=== PATIENT | male | born 1980 | race Two or more races ===

== ENCOUNTER 2018-08-25 02:11 | Emergency (ER) | payer MEDICAID ==
[~2018-08-25] VITALS: Ht 170.2 cm; Wt 117.0 kg
--- NOTE | 2018-08-25 02:50 | NUR ---
Pt came in complaining of cough with congestion. He states he has been coughing x 5 months and tried all possible remedies but without relief. Pt is A, O/4, walks independently, on RA, lungs clear to auscultation . Pt admits to smoking cigarettes and states he recently quit smoking marijuana. Awaiting to be seen by Dr. Feng.
[2018-08-25] MEDS ORDERED: CLONIDINE HCL 0.1 MG TABLET ONE (03:24)
[2018-08-25] MEDS ORDERED: CLONIDINE HCL 0.1 MG TABLET PO ONE (03:30)
[2018-08-25 03:34] LABS: EOSINOPHILS % (AUTO) 4.4 % (0.0-6.0); HEMATOCRIT 41 % (39-51); HEMOGLOBIN 13.6 g/dL (13.5-17.5); LYMPHOCYTES # (AUTO) 3.1 /CMM (0.8-4.8); LYMPHOCYTES % (AUTO) 32.1 % (20.0-44.0); MEAN CORPUSCULAR HGB CONC 33 g/dl (31.0-36.0); MEAN CORPUSCULAR VOLUME 84 fL (80-96); MONOCYTES # (AUTO) 0.6 /CMM (0.1-1.30); MONOCYTES % (AUTO) 6.7 % (2.0-12.0); NEUTROPHILS # (AUTO) 5.4 /CMM (1.8-8.9); NEUTROPHILS % (AUTO) 55.8 % (43.0-81.0); PLATELET COUNT (AUTO) 227 /CMM (150-450); RED BLOOD CELL COUNT(AUTO) 4.89 MIL/uL (4.5-6.0); WHITE BLOOD COUNT (AUTO) 9.6 K/uL (4.3-11.0)
[2018-08-25 03:35] LABS: BASOPHILS # (AUTO) 0.1 /CMM (0.0-0.2)
[2018-08-25 03:39] LABS: CALCIUM, SERUM 8.6 mg/dL (8.5-10.1); CREATININE 1.2 mg/dL (0.6-1.3); POTASSIUM 3.9 mmol/L (3.5-5.1)
[2018-08-25 03:45] LABS: ALBUMIN 3.5 g/dL (3.4-5.0); BILIRUBIN,TOTAL 0.3 mg/dL (0.2-1.0); TOTAL PROTEIN, SERUM 7.2 g/dL (6.4-8.2)
--- NOTE | 2018-08-25 03:45 | NUR ---
Urine sample collected and sent to lab
[2018-08-25 04:12] LABS: APPEARANCE,URINE CLEAR (CLEAR); BILIRUBIN,URINE NEGATIVE (NEGATIVE); BLOOD, URINE NEGATIVE Ery/uL (NEGATIVE); COLOR,URINE YELLOW (YELLOW); KETONES,URINE TRACE (NEGATIVE); LEUKOCYTE ESTERASE ,URINE NEGATIVE (NEGATIVE); NITRITE, URINE NEGATIVE (NEGATIVE); PH,URINE 5.5 (5.0-8.0); PROTEIN,URINE 1+ mg/dl (NEGATIVE); UGLUCOSE NEGATIVE (NEGATIVE); UROBILINOGEN,URINE 0.2 EU/dL (0.2)
[2018-08-25 04:15] LABS: BACTERIA,URINE Few /HPF (None Seen); RBC,URINE 0-2 /HPF (0-2); SQUAMOUS EPITHELIAL CELL,UR Rare /HPF (None Seen); WBC,URINE 0-2 /HPF (0-3)
[2018-08-25] MEDS ORDERED: FUROSEMIDE 20 MG/2 ML VIAL IV ONE (04:30)
[2018-08-25] MEDS ORDERED: LABETALOL 20 MG/4 ML VIAL IV ONE (04:30)
[2018-08-25] MEDS ORDERED: FUROSEMIDE 20 MG/2 ML VIAL ONE (04:39)
[2018-08-25] MEDS ORDERED: LABETALOL 20 MG/4 ML VIAL ONE (04:39)
[2018-08-25 04:45] LABS: B-TYPE NATRIURETIC PEPTIDE 818 PG/ML (0-125)
--- NOTE | 2018-08-25 04:49 | NUR ---
Pre Labetalol VS : BP = 147/113, HR = 116, RR= 14
--- NOTE | 2018-08-25 04:52 | NUR ---
Intra labetalol BP = 148/98, HR = 97
--- NOTE | 2018-08-25 04:54 | NUR ---
Post Labetalol BP = 154/127, HR = 95
--- NOTE | 2018-08-25 05:10 | NUR ---
Pt resting comfortably, BP and HR remain elevated, will continue to monitor
--- NOTE | 2018-08-25 05:40 | NUR ---
Pt's BP is well controlled now at 149/81 mmHg, HR = 96.
--- NOTE | 2018-08-25 05:53 | NUR ---
Patient discharged to home in stable condition. Written and verbal after care instructions and prescription given. Patient verbalizes understanding of instruction.IV removed. Catheter intact and site benign. Pressure and 4x4 applied to site. No bleeding noted. Pt ambulatory with a steady gait
[2018-08-25 05:55] VITALS: BP 149/81
== END 2018-08-25 05:57 | disposition home or self-care (01) ==
LOC: ER 02:15
DX: I11.9 Hypertensive heart disease without heart failure (principal); I43 Cardiomyopathy in diseases classified elsewhere; F10.10 Alcohol abuse, uncomplicated; F17.200 Nicotine dependence, unspecified, uncomplicated; R00.0 Tachycardia, unspecified; Y90.9 Presence of alcohol in blood, level not specified; Z71.6 Tobacco abuse counseling
CPT/HCPCS: 36415; 71045; 80053; 80305; 81001; 83880; 84484; 85025; 93005; 96374; 96375; 99284; 99406; A4606; J1940; J3490; Z7610; 81000-TC

== ENCOUNTER 2019-01-11 22:03 | Inpatient (IN) | payer MEDICAID ==
[~2019-01-11] VITALS: Ht 170.2 cm; Wt 124.3 kg
[2019-01-11] MEDS ORDERED: IPRATROPIUM NEB FS 0.5 MG/2.5 ML AMPUL.NEB NEB ONE (22:30)
[2019-01-11] MEDS ORDERED: predniSONE 20 MG TABLET PO ONE (22:30)
[2019-01-11] MEDS ORDERED: NITROGLYCERIN PACKET 1 GM PACKET TD ONE ×2 (22:30→23:30)
[2019-01-11] MEDS ORDERED: ALBUTEROL FS 2.5 MG/3 ML VIAL.NEB NEB ONE (22:30)
[2019-01-11] MEDS ORDERED: ASPIRIN 81 MG TAB.CHEW PO ONE (22:30)
[2019-01-11] MEDS ORDERED: ALBUTEROL FS 2.5 MG/3 ML VIAL.NEB ONE (22:31)
[2019-01-11] MEDS ORDERED: IPRATROPIUM NEB FS 0.5 MG/2.5 ML AMPUL.NEB ONE (22:31)
[2019-01-11] MEDS ORDERED: ASPIRIN 81 MG TAB.CHEW ONE (22:34)
[2019-01-11] MEDS ORDERED: NITROGLYCERIN PACKET 1 GM PACKET ONE (22:34)
[2019-01-11] MEDS ORDERED: predniSONE 20 MG TABLET ONE (22:34)
--- NOTE | 2019-01-11 22:34 | NUR ---
PT BIBS. C/O "IM HAVING ANXIETY AND SHORTNESS OF BREATH, I ALSO THINK IM HAVING SYNCOPAL EPISODES" PT AOX4. AMBULATORY. VSS. PLACED ON NASAL CANULA ON 2L O2. MD AWARE
[2019-01-11 22:47] LABS: BASOPHILS # (AUTO) 0.1 /CMM (0.0-0.2); BASOPHILS % (AUTO) 0.9 % (0.0-2.0); HEMATOCRIT 39 % (39-51); HEMOGLOBIN 12.7 g/dL (13.5-17.5); LYMPHOCYTES # (AUTO) 2.3 /CMM (0.8-4.8); LYMPHOCYTES % (AUTO) 28.9 % (20.0-44.0); MEAN CORPUSCULAR HGB CONC 33 g/dl (31.0-36.0); MEAN CORPUSCULAR VOLUME 83 fL (80-96); MONOCYTES # (AUTO) 0.5 /CMM (0.1-1.30); MONOCYTES % (AUTO) 6.9 % (2.0-12.0); NEUTROPHILS # (AUTO) 4.9 /CMM (1.8-8.9); NEUTROPHILS % (AUTO) 61.3 % (43.0-81.0); PLATELET COUNT (AUTO) 231 /CMM (150-450); WHITE BLOOD COUNT (AUTO) 7.9 K/uL (4.3-11.0)
[2019-01-11 22:54] LABS: CALCIUM, SERUM 8.8 mg/dL (8.5-10.1); CREATININE 1.2 mg/dL (0.6-1.3); POTASSIUM 4.5 mmol/L (3.5-5.1)
[2019-01-11 23:11] LABS: ALBUMIN 3.1 g/dL (3.4-5.0); BILIRUBIN,DIRECT 0.2 mg/dL (0.0-0.2); BILIRUBIN,TOTAL 0.5 mg/dL (0.2-1.0); TOTAL PROTEIN, SERUM 6.9 g/dL (6.4-8.2)
[2019-01-11] MEDS ORDERED: FUROSEMIDE 20 MG/2 ML VIAL ONE (23:23)
[2019-01-11] MEDS ORDERED: FUROSEMIDE 20 MG/2 ML VIAL IV ONE (23:30)
[2019-01-11] MEDS ORDERED: LABETALOL HCL IV 100MG VIAL ONE (23:45)
[2019-01-12] MEDS ORDERED: LABETALOL HCL IV 100MG VIAL IV ONE
[2019-01-12 00:34] VITALS: BP 141/42
--- NOTE | 2019-01-12 01:29 | NUR ---
RT NOTE PT CAME TO ER FOR SOB, O2 SAT 80% HR 127. MD ORDERED BREATHING TX, THEN BIPAP 15/5 30%.
[2019-01-12] MEDS ORDERED: MAG HYDROX/AL HYDROX/SIMETH 30 ML UDC PO PRN (01:30)
[2019-01-12] MEDS ORDERED: MAGNESIUM HYDROXIDE 30 ML UDC PO PRN (01:30)
[2019-01-12] MEDS ORDERED: ZOLPIDEM TARTRATE 5 MG TABLET PO PRN (01:30)
[2019-01-12] MEDS ORDERED: Z GUARD REMEDY 2 OZ OINT TP PRN (01:30)
[2019-01-12] MEDS ORDERED: ONDANSETRON HCL/PF 4 MG/2 ML VIAL IVP PRN (01:30)
[2019-01-12] MEDS ORDERED: IV NS 0.9% 250 ML IV ONE (01:36)
[2019-01-12] MEDS ORDERED: IOHEXOL-350 100 ML VIAL IV ONE (01:36)
[2019-01-12] MEDS ORDERED: CT SWABBABLE VALVE TRANS SET 1 EA INFUS.SET MC ONE (01:36)
--- NOTE | 2019-01-12 04:14 | NUR ---
CALLED NURSING SUP FOR BED, NOT AVAILABLE UNTIL AM SHIFT
[2019-01-12] MEDS ORDERED: IBUPROFEN 600 MG TABLET PO ONE ×2 (05:39→06:00)
[2019-01-12] MEDS ORDERED: LORA10TA7 PO (08:19)
[2019-01-12] MEDS ORDERED: BENA20TA9 PO (08:19)
[2019-01-12] MEDS ORDERED: ALBU18HF2 IH (08:19)
[2019-01-12] MEDS ORDERED: IPRA12.9 BNOSTRILS (08:19)
[2019-01-12 08:40] LABS: BASOPHILS % (AUTO) 0.2 % (0.0-2.0); HEMATOCRIT 38 % (39-51); HEMOGLOBIN 12.5 g/dL (13.5-17.5); LYMPHOCYTES # (AUTO) 0.9 /CMM (0.8-4.8); LYMPHOCYTES % (AUTO) 12.1 % (20.0-44.0); MEAN CORPUSCULAR HGB CONC 33 g/dl (31.0-36.0); MEAN CORPUSCULAR VOLUME 84 fL (80-96); MONOCYTES # (AUTO) 0.2 /CMM (0.1-1.30); MONOCYTES % (AUTO) 3.4 % (2.0-12.0); NEUTROPHILS % (AUTO) 84.3 % (43.0-81.0); PLATELET COUNT (AUTO) 219 /CMM (150-450); WHITE BLOOD COUNT (AUTO) 7.1 K/uL (4.3-11.0)
[2019-01-12 08:51] LABS: CALCIUM, SERUM 8.3 mg/dL (8.5-10.1); CREATININE 1.4 mg/dL (0.6-1.3); MAGNESIUM 1.7 mg/dL (1.8-2.4); PHOSPHORUS 4.3 mg/dL (2.5-4.9)
[2019-01-12] MEDS ORDERED: INSULIN REGULAR, HUMAN 100 UNIT/ML 10 ML VIAL ONE (08:59)
[2019-01-12] MEDS ORDERED: INSULIN REGULAR, HUMAN 100 UNIT/ML 10 ML VIAL SQ ONE (09:00)
[2019-01-12] MEDS ORDERED: FUROSEMIDE 40 MG/4 ML VIAL IV SCH ×4 (09:00→17:00)
--- NOTE | 2019-01-12 09:36 | NUR ---
REPORT GIVEN TO LISA BALES. PT AWAITING TRANSFER TO FLOOR.
[2019-01-12 09:55] VITALS: BP 147/122
[2019-01-12] MEDS ORDERED: METOPROLOL TARTRATE INJ 5 MG/5 ML AMPUL IVP PRN (11:00)
[2019-01-12] MEDS ORDERED: ALPRAZOLAM 0.25 MG TABLET PO PRN (11:00)
[2019-01-12] MEDS ORDERED: DEXTROSE 50%-WATER 50 ML DISP.SYRIN IV PRN (11:00)
[2019-01-12] MEDS ORDERED: AMLODIPINE BESYLATE 5 MG TABLET PO SCH (11:00)
[2019-01-12] MEDS ORDERED: BENAZEPRIL HCL 20 MG TABLET PO SCH (11:00)
[2019-01-12] MEDS ORDERED: hydrALAZINE HCL 25 MG TABLET PO PRN (11:00)
[2019-01-12] MEDS: ALBUTEROL FS 2.5 MG/3 ML VIAL.NEB NEB SCH ×4 (11:30→23:06)
[2019-01-12] MEDS: IPRATROPIUM NEB FS 0.5 MG/2.5 ML AMPUL.NEB NEB SCH ×4 (11:30→23:06)
[2019-01-12 12:29] LABS: ABG OXYGEN SATURATION 96.3 % (92.0-98.5); ABG PCO2 36.8 mmHg (35.0-45.0); ABG PH 7.416 (7.350-7.450); ABG PO2 91.8 mmHg (75.0-100.0); AaDO2 13.9 mmHg; COHb 0.9 % (0.5-1.5); MetHb 0.5 % (0.0-1.5); SITE, ABG Right Radial; VENT MODE, BG room air
[2019-01-12] MEDS: BLOOD SUGAR DIAGNOSTIC 1 EACH STRIP IN SCH ×4 (12:30→21:14)
[2019-01-12 12:46] VITALS: BP 147/116
[2019-01-12] MEDS: CARVEDILOL 3.125 MG TABLET PO SCH ×2 (12:49→21:15)
[2019-01-12] MEDS: SPIRONOLACTONE 25 MG TABLET PO SCH (12:49)
[2019-01-12] MEDS: LISINOPRIL (20MG) 20 MG TABLET PO SCH (12:49)
[2019-01-12] MEDS: ASPIRIN 81 MG TAB.CHEW PO SCH (12:50)
[2019-01-12] MEDS: LORATADINE 10 MG TABLET PO SCH (12:50)
[2019-01-12] MEDS: Magnesium 1GM/D5W 100ML PREMIX 100 ML IV SCH ×3 (12:57→19:17)
[2019-01-12] MEDS: NICOTINE PATCH (21MG) 21 MG PATCH.TD24 TD SCH (13:01)
[2019-01-12] MEDS: INSULIN REGULAR, HUMAN 100 UNIT/ML 3 ML VIAL SQ PRN ×3 (13:06→21:13)
--- NOTE | 2019-01-12 15:30 | NUR ---
NURSE NOTES: 1400 MAGNESIUM NOT ABLE TO BE ABLE, NURSE IS DISCHARGE 2 OTHER PATIENTS TO NURSING HOMES. UNABLE TO GET MAGNESIUM OUT OF PHYXIS.
[2019-01-12] MEDS: FUROSEMIDE 40 MG/4 ML VIAL IV SCH ×2 (18:19→23:51)
[2019-01-12 18:27] VITALS: BP 155/119
[2019-01-12] MEDS: VALSARTAN 80 MG TABLET PO SCH (18:32)
--- NOTE | 2019-01-12 18:35 | NUR ---
NURSE NOTE: NURSE WENT TO PHARMACY TO WIG COMBER THIRD DOSE OF MAGNESIUM, PHARMACIST SAID THEY WOULD BRING THE DOSE UP
--- NOTE | 2019-01-12 19:15 | NUR ---
CHANGE OF SHIFT REPORT Patient in bed, awake, A/O x 4, appears anxious, on oxygen at 2L via NC, dyspnea with exertion per report. Sinus Tach on the Telemonitor. IV Magnesium infusing. Instruction to use call light for assistance, verbalized understanding. Will cont to monitor.
[2019-01-12 20:00] VITALS: BP 159/112
[2019-01-12] MEDS: HYDROCODONE/APAP 5/325MG 1 EACH TABLET PO PRN (21:44)
[2019-01-13] MEDS: BLOOD SUGAR DIAGNOSTIC 1 EACH STRIP IN SCH ×6 (01:43→21:04)
[2019-01-13] MEDS: INSULIN REGULAR, HUMAN 100 UNIT/ML 3 ML VIAL SQ PRN ×5 (01:43→21:12)
[2019-01-13] MEDS: FUROSEMIDE 40 MG/4 ML VIAL IV SCH (03:12)
[2019-01-13] MEDS: IPRATROPIUM NEB FS 0.5 MG/2.5 ML AMPUL.NEB NEB SCH ×5 (03:30→19:43)
[2019-01-13] MEDS: ALBUTEROL FS 2.5 MG/3 ML VIAL.NEB NEB SCH ×5 (03:30→19:43)
[2019-01-13 04:00] VITALS: BP 126/89
[2019-01-13] MEDS: HYDROCODONE/APAP 5/325MG 1 EACH TABLET PO PRN (04:04)
--- NOTE | 2019-01-13 06:11 | NUR ---
END OF SHIFT REPORT Patient in bed, Sinus Tach HR 108 on the Tele monitor. On oxygen at 2L via NC, dyspnea with exertion. Refused Neb. education provided. On IV diuretic, adequate urine output. Back pain managed with PRN [place]. Accu check Q 4hours with ISS given. Patient is anxious at times, refused medication for anxiety, declined teaching. Planned repeat XR Chest today. Maintained safety. Will endorse to oncoming RN.
[2019-01-13 08:00] VITALS: BP 116/81
--- NOTE | 2019-01-13 08:00 | NUR ---
PATIENT REFUSED BLOOD DRAW. ASKED TO CAME BACK IN 2 HR
--- NOTE | 2019-01-13 08:41 | NUR ---
PATIENT REUSED CHEST X-R
[2019-01-13] MEDS ORDERED: FUROSEMIDE 40 MG TABLET PO SCH (09:00)
[2019-01-13] MEDS: NICOTINE PATCH (21MG) 21 MG PATCH.TD24 TD SCH (09:00)
[2019-01-13] MEDS: LORATADINE 10 MG TABLET PO SCH (09:03)
[2019-01-13] MEDS: LISINOPRIL (20MG) 20 MG TABLET PO SCH (09:03)
[2019-01-13] MEDS: SPIRONOLACTONE 25 MG TABLET PO SCH (09:03)
[2019-01-13] MEDS: VALSARTAN 80 MG TABLET PO SCH (09:03)
[2019-01-13] MEDS: ASPIRIN 81 MG TAB.CHEW PO SCH (09:04)
[2019-01-13] MEDS: CARVEDILOL 3.125 MG TABLET PO SCH ×2 (09:04→21:03)
[2019-01-13 10:49] LABS: BASOPHILS # (AUTO) 0.1 /CMM (0.0-0.2); BASOPHILS % (AUTO) 0.9 % (0.0-2.0); EOSINOPHILS % (AUTO) 3.7 % (0.0-6.0); HEMATOCRIT 40 % (39-51); HEMOGLOBIN 13.1 g/dL (13.5-17.5); LYMPHOCYTES % (AUTO) 32.3 % (20.0-44.0); MEAN CORPUSCULAR HGB CONC 33 g/dl (31.0-36.0); MEAN CORPUSCULAR VOLUME 82 fL (80-96); MONOCYTES # (AUTO) 0.8 /CMM (0.1-1.30); MONOCYTES % (AUTO) 8.9 % (2.0-12.0); NEUTROPHILS # (AUTO) 5.1 /CMM (1.8-8.9); NEUTROPHILS % (AUTO) 54.2 % (43.0-81.0); PLATELET COUNT (AUTO) 240 /CMM (150-450); RED BLOOD CELL COUNT(AUTO) 4.89 MIL/uL (4.5-6.0); WHITE BLOOD COUNT (AUTO) 9.4 K/uL (4.3-11.0)
[2019-01-13 10:56] LABS: CALCIUM, SERUM 8.2 mg/dL (8.5-10.1); MAGNESIUM 1.9 mg/dL (1.8-2.4); PHOSPHORUS 5.6 mg/dL (2.5-4.9); POTASSIUM 3.2 mmol/L (3.5-5.1)
--- NOTE | 2019-01-13 11:00 | NUR ---
patient strict i/o. Explained patient importance to reduce salt and fluids. Patient noncompliant. He has cooler at bedside with juices and snacks. Reinforcement needed
[2019-01-13 11:12] LABS: THYROID STIMULATING HORMONE 3.025 uIU/mL (0.358-3.74)
[2019-01-13] MEDS ORDERED: POTASSIUM CHLORIDE 20 MEQ TAB.PRT.SR PO ONE (12:30)
[2019-01-13] MEDS: FUROSEMIDE 40 MG TABLET PO SCH ×2 (12:32→16:36)
[2019-01-13 15:49] VITALS: BP 134/68
[2019-01-13] MEDS: ACETAMINOPHEN 325 MG TABLET PO PRN (15:52)
[2019-01-13] MEDS: SOD FERRIC GLUC 125 MG in IV NS 0.9% 100 ML IV SCH (18:32)
--- NOTE | 2019-01-13 19:03 | NUR ---
Patient sitting on a chair, awake, A/O x 4, oxygen off at this time. IV Iron infusing. Instruction to use call light for assistance, verbalized understanding. All needs attended to. will endorse to next shift for jenaro.
--- NOTE | 2019-01-13 19:30 | NUR ---
CHANGE OF SHIFT REPORT Patient in bed, sleeping, arouses easily, on oxygen at 2L via NC. Remains non compliant with eating habits per report. Will cont to monitor.
[2019-01-13 20:00] VITALS: BP 122/78
--- NOTE | 2019-01-13 22:36 | NUR ---
Patient lives at home with family. He was ambulatory and independent with adl's at baseline prior to hospitalization.He plan to return home upon discharge. Addendum: 01/13/19 at 2236 by NAMAN ALLEN RN Amended: Links added.
[2019-01-14] MEDS: ALBUTEROL FS 2.5 MG/3 ML VIAL.NEB NEB SCH ×7 (00:11→23:19)
[2019-01-14] MEDS: IPRATROPIUM NEB FS 0.5 MG/2.5 ML AMPUL.NEB NEB SCH ×7 (00:12→23:19)
[2019-01-14] MEDS: BLOOD SUGAR DIAGNOSTIC 1 EACH STRIP IN SCH ×6 (01:10→21:00)
[2019-01-14] MEDS: INSULIN REGULAR, HUMAN 100 UNIT/ML 3 ML VIAL SQ PRN ×6 (01:11→21:14)
--- NOTE | 2019-01-14 06:22 | NUR ---
END OF SHIFT NOTES Patient sitting up in chair, A/O x 4. Ambulates independently, tolerating RA at rest and with exertion. Continue on Accu check Q 4 hours with ISS. Home food at bedside, high in sugar and salt. Non compliant with eating habit, education provided, diet management discussed, patient stated he only eat organic food and fruits. No acute events overnight. Will endorse to oncoming RN.
[2019-01-14 08:00] VITALS: BP 137/60
[2019-01-14] MEDS: ACETAMINOPHEN 325 MG TABLET PO PRN (08:15)
[2019-01-14] MEDS ORDERED: IBUPROFEN 600 MG TABLET PO PRN (08:30)
[2019-01-14 08:49] LABS: CREATININE 1.2 mg/dL (0.6-1.3); POTASSIUM 4.2 mmol/L (3.5-5.1)
[2019-01-14] MEDS: ASPIRIN 81 MG TAB.CHEW PO SCH (08:52)
[2019-01-14] MEDS: FUROSEMIDE 40 MG TABLET PO SCH ×3 (08:53→17:36)
[2019-01-14] MEDS: CARVEDILOL 6.25 MG TABLET PO SCH ×2 (08:54→21:14)
[2019-01-14 08:55] LABS: BILIRUBIN,TOTAL 0.3 mg/dL (0.2-1.0); PHOSPHORUS 5.1 mg/dL (2.5-4.9); TOTAL PROTEIN, SERUM 6.8 g/dL (6.4-8.2)
[2019-01-14] MEDS: IBUPROFEN 400 MG TABLET PO PRN ×3 (08:55→20:40)
[2019-01-14] MEDS: LISINOPRIL (20MG) 20 MG TABLET PO SCH (08:55)
[2019-01-14] MEDS: LORATADINE 10 MG TABLET PO SCH (08:55)
[2019-01-14] MEDS: SPIRONOLACTONE 25 MG TABLET PO SCH (08:55)
[2019-01-14] MEDS: VALSARTAN 80 MG TABLET PO SCH (08:55)
[2019-01-14] MEDS: NICOTINE PATCH (21MG) 21 MG PATCH.TD24 TD SCH (09:00)
--- NOTE | 2019-01-14 11:30 | NUR ---
RT NOTE RAPID COMM UNAVAILABLE AT THIS TIME. UNABLE TO TRANSFER TO [facility]. ABG RESULTS PLACED IN PATIENTS CHART. RESULTS RELAYED TO PRIMARY NURSE.
[2019-01-14] MEDS: SOD FERRIC GLUC 125 MG in IV NS 0.9% 100 ML IV SCH (14:01)
[2019-01-14 16:00] VITALS: BP 145/99
--- NOTE | 2019-01-14 18:50 | NUR ---
M/S RN NOTES PATIENT AWAKE SITTING WITH NO RESPIRATORY DISTRESS NOTED, NO C/O PAIN AT THIS TIME. SKIN WARM TO TOUCH. IV ACCESS SITE INTACT AND PATENT. PATIENT'S NEEDS ATTENDED. CALL LIGHT WITHIN REACH. WILL ENDORSE TO ONCOMING NURSE.
--- NOTE | 2019-01-14 19:10 | NUR ---
MS RN OPENING NOTES: RECEIVED PATIENT SITTING AT THE EDGE OF THE BED, AWAKE ALERT AND ORIENTED X4, NO SOB. NO COMPLAIN OF PAIN. PATIENT JUST ATE FOOD FROM HOME. INSTRUCTED PATIENT RE: BLOOD SUGAR MONITORING Q4H, AND CARB CONTROL, VERBALIZED UNDERSTANDING.
--- NOTE | 2019-01-14 19:56 | NUR ---
MS RN OPENING NOTES: RETAIL COVERAGE MERCHANDISER REPORT THAT PATIENT WENT DOWN STAIRS ACCOMPANIED BY THE STAFF SEEN BY TAYLOR. ASHWIN COX MADE AWARE. WILL INSTRUCT THE PATIENT TO INFORM RN BEFORE HE LEAVES THE FLOOR.
[2019-01-14 20:00] VITALS: BP 159/86
--- NOTE | 2019-01-14 20:33 | NUR ---
PATIENT CAME BACK FROM DOWNSTAIRS, HAVING BREATHINF TREATMENT RIGHT NOW GIVEN BY RT. PATIENT IS SITTING IN THE CHAIR TALKING TO THE PHONE.
--- NOTE | 2019-01-14 21:25 | NUR ---
noticed that when patient fell asleep. he's snoring and has leep apnea. O2 at 2L/min given and instructed to keep it on while asleep,patient verbalized understanding.
--- NOTE | 2019-01-14 21:28 | NUR ---
blood sugar fingerstick= 248, 8 units regular insulin given.
[2019-01-15] MEDS: BLOOD SUGAR DIAGNOSTIC 1 EACH STRIP IN SCH ×4 (01:00→13:15)
[2019-01-15] MEDS: INSULIN REGULAR, HUMAN 100 UNIT/ML 3 ML VIAL SQ PRN ×4 (02:01→12:26)
--- NOTE | 2019-01-15 02:09 | NUR ---
BLOOD LIQHU=905, 12UNITS REGULAR INSULIN GIVEN. PATIENT IS NON COMPLIANT REGARDING FOOD CONSUMPTION. ADVISED PATIENT TO CONTROL HIS FOOD CONSUMPTION ESPECIALLY CARBS AND SWEETS.
[2019-01-15] MEDS: ALBUTEROL FS 2.5 MG/3 ML VIAL.NEB NEB SCH ×4 (03:23→15:18)
[2019-01-15] MEDS: IPRATROPIUM NEB FS 0.5 MG/2.5 ML AMPUL.NEB NEB SCH ×4 (03:23→15:18)
[2019-01-15 07:05] LABS: BASOPHILS % (AUTO) 0.5 % (0.0-2.0); EOSINOPHILS % (AUTO) 5.3 % (0.0-6.0); HEMATOCRIT 41 % (39-51); HEMOGLOBIN 13.5 g/dL (13.5-17.5); LYMPHOCYTES # (AUTO) 2.1 /CMM (0.8-4.8); LYMPHOCYTES % (AUTO) 30.9 % (20.0-44.0); MEAN CORPUSCULAR HGB CONC 33 g/dl (31.0-36.0); MEAN CORPUSCULAR VOLUME 83 fL (80-96); MONOCYTES # (AUTO) 0.7 /CMM (0.1-1.30); MONOCYTES % (AUTO) 10.7 % (2.0-12.0); NEUTROPHILS # (AUTO) 3.6 /CMM (1.8-8.9); NEUTROPHILS % (AUTO) 52.6 % (43.0-81.0); PLATELET COUNT (AUTO) 245 /CMM (150-450); WHITE BLOOD COUNT (AUTO) 6.9 K/uL (4.3-11.0)
[2019-01-15 07:28] LABS: CALCIUM, SERUM 8.5 mg/dL (8.5-10.1); CREATININE 1.2 mg/dL (0.6-1.3); MAGNESIUM 1.9 mg/dL (1.8-2.4); PHOSPHORUS 4.4 mg/dL (2.5-4.9); POTASSIUM 4.3 mmol/L (3.5-5.1)
--- NOTE | 2019-01-15 07:36 | NUR ---
MS RN CLOSING NOTES: PATIENT IS RESTING COMFORTABLY IN BED. NO SOB. NO COMPLAIN OF PAIN. CALL LIGHT WITHIN REACH. NO ACUTE EVENTS OVERNIGHT.
--- NOTE | 2019-01-15 07:48 | NUR ---
RN MS OPENING NOTES Received patient on room air, but does have a nasal cannula and patient is able to put it on/off as he pleases. No sob noted, patient remains a/o x4. Patient comfortably lying down on his bed, has access to food around his bed. Patient denies pain at this time.
[2019-01-15 08:00] VITALS: BP 144/103
[2019-01-15] MEDS: CARVEDILOL 6.25 MG TABLET PO SCH (08:16)
[2019-01-15] MEDS: ASPIRIN 81 MG TAB.CHEW PO SCH (08:16)
[2019-01-15] MEDS: FUROSEMIDE 40 MG TABLET PO SCH ×2 (08:16→12:20)
[2019-01-15] MEDS: LORATADINE 10 MG TABLET PO SCH (08:16)
[2019-01-15] MEDS: NICOTINE PATCH (21MG) 21 MG PATCH.TD24 TD SCH (08:18)
[2019-01-15 08:20] VITALS: BP 144/103
[2019-01-15] MEDS: VALSARTAN 80 MG TABLET PO SCH (08:20)
[2019-01-15] MEDS: SPIRONOLACTONE 25 MG TABLET PO SCH (08:21)
[2019-01-15] MEDS: IBUPROFEN 400 MG TABLET PO PRN ×2 (08:24→12:26)
[2019-01-15] MEDS ORDERED: LISINOPRIL (20MG) 20 MG TABLET PO SCH (09:00)
[2019-01-15] MEDS ORDERED: ASPI-1169 PO (13:21)
[2019-01-15] MEDS ORDERED: LISI20TA61 PO (13:21)
[2019-01-15] MEDS ORDERED: CARV6.252 PO (13:21)
[2019-01-15] MEDS ORDERED: SPIR25TA PO (13:21)
[2019-01-15] MEDS ORDERED: FURO40TA5 PO (13:21)
[2019-01-15] MEDS: SOD FERRIC GLUC 125 MG in IV NS 0.9% 100 ML IV SCH (14:00)
--- NOTE | 2019-01-15 15:18 | NUR ---
RN MS NOTES Patient discharged around 1514. Patient has all his valuables with him, cellphone, clothing. Patient has all the necessary paperworks signed as well. Patient has no further concerns with his care, patient likes to eat in his room even though nurses and his doctors have stated that he needs to lose weight and control his diet. patient left with private car. Patient stated that he has everything that he came here with. Patient removed IV line by himself and wanted to leave right away.
== END 2019-01-15 15:10 | disposition home or self-care (01) | DRG 194 ==
LOC: ER 22:06 → TELE 01-12 09:01 → MED 01-13 09:11
PROVIDERS: ADMIT Internal Medicine; ATTEND Internal Medicine
DX: I11.0 Hypertensive heart disease with heart failure (principal); E87.2 Acidosis; E11.65 Type 2 diabetes mellitus with hyperglycemia; E66.01 Morbid (severe) obesity due to excess calories; I50.21 Acute systolic (congestive) heart failure; I42.9 Cardiomyopathy, unspecified; E83.42 Hypomagnesemia; I25.10 Atherosclerotic heart disease of native coronary artery without angina pectoris; E78.5 Hyperlipidemia, unspecified; G89.29 Other chronic pain; F17.210 Nicotine dependence, cigarettes, uncomplicated; F41.9 Anxiety disorder, unspecified; I70.0 Atherosclerosis of aorta; Z91.19 Patient's noncompliance with other medical treatment and regimen; Z68.41 Body mass index [BMI] 40.0-44.9, adult; J44.1 Chronic obstructive pulmonary disease with (acute) exacerbation; R74.0 Nonspecific elevation of levels of transaminase and lactic acid dehydrogenase [LDH]; G47.33 Obstructive sleep apnea (adult) (pediatric); J20.9 Acute bronchitis, unspecified; J44.0 Chronic obstructive pulmonary disease with (acute) lower respiratory infection
CPT/HCPCS: 36415; 36600; 71045-TC; 76770-TC; 80048-TC; 80053-TC; 80061-TC; 80076-TC; 82803-TC; 82962-TC; 83540-TC; 83735-TC; 83880; 84100-TC; 84443-TC; 84484-TC; 85025-TC; 85378-TC; 87081-TC; 93307-TC; 94799-TC; 99082-TC; G0378; J1815; J1940; J2916; J3475; J3490; J7030; J7050; Q9967

== ENCOUNTER 2019-03-20 03:40 | Emergency (ER) | payer MEDICAID ==
[~2019-03-20] VITALS: Ht 170.2 cm; Wt 118.8 kg
[~2019-03-20 03:40] MED LIST: ALBU18HF2 IH; ASPI-1169 PO; BENA20TA9 PO; CARV6.252 PO; FURO40TA5 PO; IPRA12.9 BNOSTRILS; LISI20TA61 PO; LORA10TA7 PO; SPIR25TA PO
[2019-03-20 03:48] VITALS: BP 173/135
--- NOTE | 2019-03-20 04:08 | NUR ---
Pt walked out of ER. Left without being seen by MD.
== END 2019-03-20 04:15 | disposition left against medical advice (07) ==
LOC: ER 03:44
DX: Z53.21 Procedure and treatment not carried out due to patient leaving prior to being seen by health care provider (principal); I10 Essential (primary) hypertension; Z98.890 Other specified postprocedural states

== ENCOUNTER 2021-02-22 07:38 | Emergency (ER) | payer MEDICAID ==
[~2021-02-22] VITALS: Ht 170.2 cm; Wt 106.6 kg
[~2021-02-22 07:38] MED LIST changes: +LISI20TA31 PO; -LISI20TA61 PO
--- NOTE | 2021-02-22 07:48 | NUR ---
called,no answer
--- NOTE | 2021-02-22 07:59 | NUR ---
called in ed waiting room. states not ready. "i need to charge my phone."
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
--- NOTE | 2021-02-22 08:43 | NUR ---
dr douglas at bedside for eval.
[2021-02-22] MEDS ORDERED: IBUPROFEN 600 MG TABLET PO ONE (09:00)
[2021-02-22] MEDS ORDERED: IBUPROFEN 600 MG TABLET ONE (09:08)
--- NOTE | 2021-02-22 11:08 | NUR ---
Horticulture/Floriculture Teacher consult: rehabilitation services coordinator consult requested for homelessness. Patient is a 40-year-old, male. SW met with patient at his bedside in the emergency department. Patient was alert and oriented x4. Patient presented irritable and agitated. Patient appeared ungroomed. Per chart, patient was brought in by self on 02/22/21 with complaints of foot pain. Patient is currently homeless and stated that he has been homeless for most of his life. SW asked patient if he has access to social support and patient stated that he has no support. Patient stated that he currently receives GR and food stamps as a source of income. Patient denied substance use. Patient denied history of mental illness. Patient denied suicidal or homicidal ideation. SW offered the patient homeless resources. Patient accepted the resources but stated, "sure I'll take them but I don't know if they will help me." Patient refused to sign homeless waiver. SW filed waiver in the patient's chart and noted patient's refusal. SW discussed discharge plan with the patient and patient stated he will discharge to the street. Patient will use public transportation. PLAN: Patient will discharge to his prior living arrangement on the street. No further SS intervention at this time, however, SW will remain available as needed. RESOURCES: Year-round shelters: [facility] [address] [address] ; [place] [facility] [place] [address] [place] [address]; [place] [facility] [id number] [facility] [address] SPA 4 | [facility] Recreation [place] Provider: First to Serve Address: [address], [address] # of Beds: 48 Population Served: [facility] Provider: First to Serve Address: [address] [facility], [address] # of Beds: 73 Population Served: [facility] 6 | [facility] Provider: [facility] at Last Address: [address] [facility], [address] # of Beds: 63 Population Served: [facility] 3 | [facility] Provider: [facility] [place] Address: [address] [place] [id number] # of Beds: 75 Population Served: [place] SPA 8 | [facility] Provider: [place] Address: [address] [facility], [address] # of Beds: 80 Population Served: [place] S[place] 1 | [facility] Provider: [place] Address: [address] [place] [address], [address] # of Beds: 85 Population Served: [place] S[place] 2 | [facility] Provider: [facility] Address: Confidential (please call for location) # of Beds: 52 Population Served: [facility] SPA 4 | [facility] Provider: [facility] Address: [address] [place] [address] # of Beds: 49 Population Served: [facility] Provider: First To Serve Address: [address] [place] [address] # of Beds: 27 Population Served: [facility] Hygiene: [place] [facility]: [address] [facility] ; [facility] [address] [facility] ; [facility] [address] [facility] . Food Resources: [place] [facility] [address] [facility]; Meet Each Need with [employer] ([facility]) [address] [facility]; [facility] [address] [facility]; [facility] [address]. Mental Health resources provided: [facility] [address] [address] [facility] [place] [address] ; [facility] [place] [address] [facility] [address], [place] [address] ; [facility] [address] [place] [address] ; [facility] [place], [place] [address] Healthcare Clinics: [facility] [address] [facility], [address] [place]. [place] ; [facility] [address] [facility] [address] [facility] [place] [address]; [facility] [address] [place] [address] [phone]
--- NOTE | 2021-02-22 11:09 | NUR ---
seen by joselo bain. was provided w/ refferals. pt refused to sign the homeless waiver. ambulatory w/ steady gait. discharge from ed in stable condition.
[2021-02-22 11:10] VITALS: BP 164/97
== END 2021-02-22 11:10 | disposition home or self-care (01) ==
LOC: ER 07:44
DX: M79.672 Pain in left foot (principal); M79.671 Pain in right foot; T73.0XXA Starvation, initial encounter; R63.1 Polydipsia; Z59.0 Homelessness; I10 Essential (primary) hypertension; Z98.890 Other specified postprocedural states; Z60.2 Problems related to living alone; Z79.899 Other long term (current) drug therapy; Z79.82 Long term (current) use of aspirin